=== PATIENT | female | born 1975 | race Caucasian/White ===

== ENCOUNTER 2018-10-29 09:03 | Emergency (ER) | payer OTHER ==
--- NOTE | 2018-10-29 10:39 | EDPHY ---
H & P Stated Complaint: fell on ice backwards Time Seen by Provider: 10/29/18 09:04 HPI/ROS: CHIEF COMPLAINT: Slipped on ice, head injury, clavicle pain HISTORY OF PRESENT ILLNESS: The patient presents the emergency department after she slipped and fell on the ice. She fell backwards striking her head. She was brought in by paramedics. She complains of a moderate to severe occipital headache. She denies any neck discomfort. The patient is complaining of some bilateral anterior chest wall pain. She denies any abdominal pain, numbness, weakness or additional complaints. The patient is not anticoagulated. She rates her pain as an 8/10. REVIEW OF SYSTEMS: A comprehensive 10 point review of systems is otherwise negative aside from elements mentioned in the history of present illness. Source: Patient Exam Limitations: No limitations - Personal History LMP (Females 10-55): IUD In Place Current Tetanus/Diphtheria Vaccine: Yes Current Tetanus Diphtheria and Acellular Pertussis (TDAP): Yes - Medical/Surgical History Hx Asthma: No Hx Chronic Respiratory Disease: No Hx Diabetes: Yes Hx Cardiac Disease: No Hx Renal Disease: No Hx Cirrhosis: No Hx Alcoholism: No Hx HIV/AIDS: No Hx Splenectomy or Spleen Trauma: No Other PMH: DM typ 2, r collar bone fx, [place] with CPAP - Social History Smoking Status: Never smoked - Physical Exam Exam: General Appearance: Alert, no distress Head: Large occipital scalp hematoma Eyes: Pupils equal, round, reactive ENT, Mouth: No hemotympanum, no oral trauma Neck: Nontender, trachea midline Respiratory: Bilateral anterior chest wall tenderness, no subcutaneous air, lungs clear bilaterally Cardiovascular: Regular rate and rhythm Abdomen: Abdomen is soft and nontender, pelvis stable Skin: No lacerations, No abrasion Back: No midline T/L/S pain Extremities: Nontender, full range of motion Neurological: A&Ox3, normal motor function, normal sensory exam Constitutional: Initial Vital Signs Temperature (C) 36.9 C 10/29/18 09:03 Heart Rate 104 H 10/29/18 09:03 Respiratory Rate 16 10/29/18 09:03 Blood Pressure 165/107 H 10/29/18 09:03 O2 Sat (%) 98 10/29/18 09:03 O2 Delivery Mode Room Air Allergies/Adverse Reactions: Penicillins Allergy (Verified 10/29/18 09:13) promethazine [From Phenergan] Allergy (Verified 10/29/18 09:13) shellfish derived Allergy (Verified 10/29/18 09:13) Home Medications: Medication Instructions Recorded metFORMIN HCL 10/29/18 Medical Decision Making - Diagnostics Imaging Results: Imaging Impressions Chest X-Ray 10/29/18 09:23 Impression: No acute pulmonary disease. Head CT 10/29/18 09:23 Impression: There is an extensive posterior scalp/subgaleal hematoma, with no associated skull fracture, or coup or contrecoup intracranial abnormality. If there is further clinical concern regarding the patient's symptoms, MR imaging is suggested, if not otherwise contraindicated. Findings were discussed with Chacho Renteria MD at 9:59 AM, on 10/29/2018. ED Course/Re-evaluation: The patient presents to the ED after a mechanical fall which resulted in a large occipital scalp hematoma. The patient is neurologically intact. She was taken for CT scan of the head which demonstrates no evidence of an intracranial hemorrhage or skull fracture. Chest x-ray is reviewed by myself demonstrates no evidence of an acute traumatic injury. The patient has been provided a concussion aftercare instruction sheet. Differential Diagnosis: Differential diagnosis considered includes intracranial hemorrhage, skull fracture, scalp hematoma, concussion, clavicle fracture, pneumothorax - Data Points Medications Given: Discontinued Medications Ibuprofen (Motrin) 600 mg PO EDNOW ONE Stop: 10/29/18 10:58 Last Admin: 10/29/18 11:19 Dose: 600 mg Departure - Departure Disposition: Home, Routine, Self-Care Clinical Impression: Concussion, Scalp hematoma, Chest wall pain Condition: Good Instructions: Chest Pain (ED), Concussion (ED) Additional Instructions: 1. Take Ibuprofen or Motrin 600 mg by mouth three times a day. 2. Concussion aftercare as prescribed. Please follow up with our concussion specialist Dr. Mcclain for any symptoms which persists past 5-7 days. Referrals: SYLVIE MAYO [Other] - As per Instructions Kindra Mcclain MD [Medical Doctor] - As per Instructions
[2018-10-29] MEDS ORDERED: IBUPROFEN 600 MG TAB PO ONE (10:57)
[2018-10-29 11:24] VITALS: BP 138/99
--- NOTE | 2018-10-29 15:46 | ASMTCAGE ---
CAGE Additional Comments Patient not seen in the ED. Chart reviewed and no indication of need to follow up or question substance abuse Date Signed: 10/29/2018 03:45 PM Electronically Signed By:Homa Carlos RN
== END 2018-10-29 11:20 | disposition home or self-care (01) ==
LOC: EDUNIT#
DX: S06.0X0A Concussion without loss of consciousness, initial encounter (principal); S00.03XA Contusion of scalp, initial encounter; E11.9 Type 2 diabetes mellitus without complications; W18.30XA Fall on same level, unspecified, initial encounter